=== PATIENT | female | born 1960 | race American Indian/Alaskan Native ===

== ENCOUNTER 2017-09-16 19:50 | Emergency (ER) | payer MEDICARE ==
--- NOTE | 2017-09-16 22:53 | Emergency Department Report ---
HPI - HPI HPI: Room 14 The patient is a 57-year-old female presenting with a chief complaint of altered mental status. The patient was brought in by the [facility]'s Department with a 1013 and only documents "distress" and "appeared upset." Nursing states the patient was seen at [facility] and was being transferred to an [facility] facility when she began "acting up." Nursing states the patient was was then being transported back to [facility] but was refused. Nursing states the [facility] Department was called and the patient was transported to our ED. The patient states she fell from her wheelchair approximately 3 days ago and has a "knot" on her head and has pain in the left knee and left shoulder. Patient denies loss of consciousness from this fall. Patient denies suicidal ideation or homicidal ideation. Patient denies auditory hallucinations or visual hallucinations. The patient acknowledges that the [facility]'s Department brought her to the hospital but states she does not know why. The patient states she is 4 months and does not seem to be grounded in reality Location: Mental state Duration: Unknown, see above Quality: [See above] Severity: Moderate Modifying factors: [see above] Context: [see above] Mode of transportation: [not driving] ED Past Medical Hx - Past Medical History Additional medical history: "Bad back" - Surgical History Additional Surgical History: "Back surgery" - Family History Family history: no significant - Social History Smoking Status: Current Every Day Smoker Substance Use Type: None (denies illicit drug use), Alcohol - Medications Home Medications: Home Medications Medication Instructions Recorded Confirmed Last Taken Type No Known Home Medications [No 09/16/17 09/16/17 Unknown History Reported Home Medications] ED Review of Systems ROS: Stated complaint: MH EVAL Other details as noted in HPI Comment: All other systems reviewed and negative Constitutional: denies: chills, fever Eyes: denies: eye pain, eye discharge, vision change ENT: denies: ear pain, throat pain Respiratory: denies: cough, shortness of breath, wheezing Cardiovascular: denies: chest pain, palpitations Endocrine: no symptoms reported Gastrointestinal: denies: abdominal pain, nausea, diarrhea Genitourinary: denies: urgency, dysuria, discharge Musculoskeletal: arthralgia Skin: denies: rash, lesions Neurological: headache Psychiatric: denies: auditory hallucinations, visual hallucinations, homicidal thoughts, suicidal thoughts Hematological/Lymphatic: denies: easy bleeding, easy bruising Physical Exam - Physical Exam Physical Exam: GENERAL: The patient is well-developed well-nourished female sleeping in chair not appearing to be in acute distress. [] HEENT: Normocephalic. Atraumatic. Extraocular motions are intact. Patient has moist mucous membranes. NECK: Supple. Trachea midline CHEST/LUNGS: Clear to auscultation. There is no respiratory distress noted. HEART/CARDIOVASCULAR: Regular. There is no tachycardia. There is no gallop rub or murmur. ABDOMEN: Abdomen is soft, nontender. Patient has normal bowel sounds. There is no abdominal distention. SKIN: There is no rash. There is no edema. There is no diaphoresis. NEURO: The patient is awake and alert. The patient is cooperative. The patient has no focal neurologic deficits. The patient has normal speech. Cranial nerves II through XII grossly intact, no drift MUSCULOSKELETAL: There is tenderness to palpation of the left shoulder and left knee. There is no evidence of acute injury. ED Medical Decision Making - Lab Data Result diagrams: 09/16/17 22:59 09/16/17 22:59 Laboratory Tests 09/16/17 09/16/17 09/16/17 22:42 22:42 22:59 WBC RBC Hgb Hct MCV MCH MCHC RDW Plt Count Lymph % (Auto) [place] % (Auto) Eos % (Auto) Baso % (Auto) Lymph # [place] # Eos # Baso # Seg Neutrophils % Seg Neutrophils # Sodium 137 Potassium 3.7 Chloride 95.9 L Carbon Dioxide 22 Anion Gap 23 BUN 10 Creatinine 0.7 Estimated GFR > 60 BUN/Creatinine Ratio 14 Glucose 314 H Calcium 9.3 HCG, Qual Urine Bilirubin Neg Urine RBC (Auto) 3.0 U Epithel Cells (Auto) 7.0 Urine Opiates Screen Presumptive negative Urine Methadone Screen Presumptive negative Ur Barbiturates Screen Presumptive negative Ur Phencyclidine Scrn Presumptive negative Ur Amphetamines Screen Presumptive negative U Benzodiazepines Scrn Presumptive negative Urine Cocaine Screen Presumptive negative U Marijuana (THC) Screen Presumptive negative Drugs of Abuse Note Disclamer Plasma/Serum Alcohol 09/16/17 09/16/17 09/16/17 22:59 22:59 22:59 WBC 5.3 RBC 4.10 Hgb 11.9 Hct 37.2 MCV 91 MCH 29 MCHC 32 RDW 16.1 H Plt Count 140 Lymph % (Auto) 25.2 [place] % (Auto) 14.0 H Eos % (Auto) 0.5 Baso % (Auto) 0.3 Lymph # 1.3 [place] # 0.7 Eos # 0.0 Baso # 0.0 Seg Neutrophils % 60.0 Seg Neutrophils # 3.2 Sodium Potassium Chloride Carbon Dioxide Anion Gap BUN Creatinine Estimated GFR BUN/Creatinine Ratio Glucose Calcium HCG, Qual Negative Urine Bilirubin Urine RBC (Auto) U Epithel Cells (Auto) Urine Opiates Screen Urine Methadone Screen Ur Barbiturates Screen Ur Phencyclidine Scrn Ur Amphetamines Screen U Benzodiazepines Scrn Urine Cocaine Screen U Marijuana (THC) Screen Drugs of Abuse Note Plasma/Serum Alcohol < 0.01 - Radiology Data Radiology results: report reviewed (CT head), image reviewed (left shoulder x- ray, left knee x-ray, CT head) interpreted by me: Left shoulder x-ray-no acute fracture, no dislocation Left knee x-ray-no acute fracture CT head (radiologist)-there is evidence of mild atrophy and gliosis. No evidence of intracranial hemorrhage or skull fracture. Small scalp hematoma seen lateral aspect right side of the forehead. - Differential Diagnosis delusional, ICH, rotator cuff injury, knee contusion, tibial plateau f Critical care attestation.: If time is entered above; I have spent that time in minutes in the direct care of this critically ill patient, excluding procedure time. ED Disposition Clinical Impression: Delusional disorder, Closed head injury, Contusion of left knee, Contusion of left shoulder Disposition: [id number]/TX-[id number] PSY HOSP/PSY UNIT Is pt being admited?: No Does the pt Need Aspirin: No Condition: Fair Time of Disposition: 00:39 (awaiting acceptance)
[2017-09-16 23:19] LABS: Basophils % (Auto) 0.3 % (0.0-1.8); Eosinophils % (Auto) 0.5 % (0.0-4.3); Hematocrit 37.2 % (30.3-42.9); Hemoglobin 11.9 gm/dl (10.1-14.3); Mean Corpuscular HGB Conc 32 % (30-34); Mean Corpuscular Hemoglobin 29 pg (28-32); Mean Corpuscular Volume 91 fl (79-97); Platelet Count 140 K/mm3 (140-440); Red Cell Distribution Width 16.1 % (13.2-15.2); White Blood Count 5.3 K/mm3 (4.5-11.0)
[2017-09-16 23:19] LABS: Urine Drugs of Abuse Note Disclamer
[2017-09-16 23:32] LABS: Anion Gap 23 mmol/L; BUN/Creatinine Ratio 14; Blood Urea Nitrogen 10 mg/dL (7-17); Calcium 9.3 mg/dL (8.4-10.2); Carbon Dioxide 22 mmol/L (22-30); Chloride 95.9 mmol/L (98-107); Glucose 314 mg/dL (65-100); Potassium 3.7 mmol/L (3.6-5.0); Sodium 137 mmol/L (137-145)
[2017-09-16 23:37] LABS: Bilirubin,Urine NEG (Negative); Blood,Urine NEG (Negative); Ketones,Urine 80 mg/dL (Negative); Leukocyte Esterase,Urine NEG (Negative); Mucus,Urine FEW /HPF; Nitrite,Urine NEG (Negative); Protein,Urine <15 mg/dL mg/dL (Negative); Urobilinogen,Urine < 2.0 mg/dL (<2.0)
--- NOTE | 2017-09-17 00:18 | Cat Scan Report ---
FINAL REPORT PROCEDURE: CT HEAD/BRAIN WO CON TECHNIQUE: Computerized tomography of the head was performed without contrast material. HISTORY: headache after fall COMPARISON: No prior studies are available for comparison. FINDINGS: Brain: There is no evidence of intracranial hemorrhage. No parenchymal hemorrhage is seen. No mass lesions or mass effect is identified. No abnormal extra-axial fluid collections or masses are seen. There is some decreased density seen in the periventricular white matter without mass effect. This is fairly symmetric and does not exhibit any mass effect consistent with gliosis probably on the basis of microvascular disease or white matter changes of aging. Ventricles: The ventricles, sulcal pattern and fissures are prominent consistent with atrophy. Bones: No evidence of acute fracture. Small scalp hematoma seen lateral aspect right side of the forehead. Paranasal sinuses: Mild nodular mucosal thickening is seen inferiorly in both maxillary sinuses. There is a 1.6 x 1.3 centimeter nodular density inferiorly in the right maxillary sinus suggesting a mucous retention cyst. Moderate patchy mucosal disease seen in multiple ethmoid air cells. Mild mucosal thickening seen anteriorly in the sphenoid sinuses. No air-fluid levels are identified. Mastoid air cells: clear IMPRESSION: There is evidence of mild atrophy and gliosis. No evidence of intracranial hemorrhage or skull fracture. Small scalp hematoma seen lateral aspect right side of the forehead. Paranasal sinus disease as described.
--- NOTE | 2017-09-17 07:12 | XRay Report ---
Left knee 2 views: History: Knee pain after fall. Findings: No bony or articular abnormality. No fracture dislocation or soft tissue calcification. Impression: Essentially negative left knee.
--- NOTE | 2017-09-17 07:13 | XRay Report ---
Left shoulder 3 views: History: Shoulder pain after fall. Findings: No fracture or dislocation. Mild arthritic changes in the a.c. joint and the glenohumeral joint. Large calcific density measuring 1.5 cm in diameter adjacent to the greater tuberosity. Impression: Arthritis. Probable calcific tendinitis. No acute fracture.
[2017-09-17 10:36] VITALS: BP 133/80
== END 2017-09-17 14:03 ==
LOC: ED 19:50 → EEVIPCON 19:50 → ED 09-17 14:03
DX: S09.90XA Unspecified injury of head, initial encounter (principal); S80.02XA Contusion of left knee, initial encounter; S40.012A Contusion of left shoulder, initial encounter; F22 Delusional disorders; F17.200 Nicotine dependence, unspecified, uncomplicated; W05.0XXA Fall from non-moving wheelchair, initial encounter; Y93.89 Activity, other specified; Y99.8 Other external cause status; Y92.89 Other specified places as the place of occurrence of the external cause
CPT/HCPCS: 36415; 70450; 73030; 73560; 80048; 80307; 81001; 84703; 85025; 99285; G0480; 80320